=== PATIENT | female | born 1945 ===

== ENCOUNTER 2016-12-16 14:46 | Emergency (ER) | payer MEDICARE, OTHER ==
[~2016-12-16] VITALS: Ht 165.1 cm; Wt 43.5 kg
[2016-12-16 15:18] VITALS: BP 179/88
== END 2016-12-16 15:42 | disposition home or self-care (01) ==
LOC: ER 14:50
DX: S16.1XXA Strain of muscle, fascia and tendon at neck level, initial encounter (principal); Z88.6 Allergy status to analgesic agent; X58.XXXA Exposure to other specified factors, initial encounter; Y93.89 Activity, other specified; Y99.8 Other external cause status; Y92.89 Other specified places as the place of occurrence of the external cause
CPT/HCPCS: 93005